=== PATIENT | female | born 1965 | race Caucasian/White ===

== ENCOUNTER 2019-12-03 21:23 | Emergency (ER) | payer BC ==
[~2019-12-03] VITALS: Ht 167.6 cm; Wt 102.1 kg
--- NOTE | 2019-12-04 00:02 | NUR ---
Patient to ER bed 4 to gown for evaluation. Side rails up.
--- NOTE | 2019-12-04 00:05 | NUR ---
Patient complains of cough and body aches for 1 week. Pt denies N/V. Per pt she had an episode of diarrhea today and states she felt chills earlier today. No other injuries/complaints per patient or noted.
--- NOTE | 2019-12-04 00:09 | NUR ---
JONI Downs at bedside examining patient.
[2019-12-04] MEDS ORDERED: AZITHROMYCIN 250 MG TABLET PO ONE (00:30)
--- NOTE | 2019-12-04 00:45 | NUR ---
Patient given written and verbal discharge instructions and verbalizes understanding. ER MD discussed with patient the results and treatment provided. Patient in stable condition. ID arm band removed. Rx of Zithromax and Promethazine with codiene given. Patient educated on pain management and to follow up with PMD. Pain Scale 0/10 Opportunity for questions provided and answered. Medication side effect fact sheet provided.
[2019-12-04 00:48] VITALS: BP_SYST 131
[2019-12-04] MEDS ORDERED: AZITHROMYCIN 250 MG TABLET ONE (00:58)
== END 2019-12-04 00:48 | disposition home or self-care (01) ==
LOC: SED 21:23
DX: R05 Cough (principal); R09.81 Nasal congestion; M79.18 Myalgia, other site; E11.9 Type 2 diabetes mellitus without complications; I10 Essential (primary) hypertension
CPT/HCPCS: 71046; 86710; 99284; Q0144; 36415

== ENCOUNTER 2023-04-26 19:42 | Emergency (ER) | payer BC ==
[~2023-04-26] VITALS: Ht 167.6 cm; Wt 72.1 kg
[~2023-04-26 19:42] MED LIST: CLIN-142 PO; GLU500 PO; LISI1TAB53 PO; PIOG15TA8 PO
[2023-04-26 20:14] VITALS: BP_SYST 167; PULSE 108; RESP 16; TEMP 96.9; O2SAT 95
[2023-04-26 21:39] LABS: BASOPHILS # (AUTO) 0.1 K/uL (0.0-0.2); EOSINOPHILS # (AUTO) 0.1 K/uL (0.0-0.4); EOSINOPHILS % (AUTO) 1.4 % (0.0-4.0); HEMATOCRIT 37.7 % (36-48); HEMOGLOBIN 12.2 g/dL (12.0-16.0); LYMPHOCYTES % (AUTO) 18.8 % (20.5-51.5); MEAN CORPUSCULAR HEMOGLOBIN 28 pg (27-31); MEAN CORPUSCULAR HGB CONC 32 % (32-36); MEAN CORPUSCULAR VOLUME 87 fL (79.0-98.0); MONOCYTES # (AUTO) 0.7 K/uL (0.0-1.0); MONOCYTES % (AUTO) 6.6 % (1.7-9.3); NEUTROPHILS # (AUTO) 7.7 K/uL (1.8-7.7); NEUTROPHILS % (AUTO) 72.2 % (40.0-70.0); PLATELET COUNT (AUTO) 523 K/uL (130-430); RED BLOOD CELL COUNT(AUTO) 4.36 MIL/uL (4.2-6.2); RED CELL DISTRIBUTION WIDTH 13.9 % (9.0-15.0); WHITE BLOOD COUNT (AUTO) 10.7 K/uL (4.8-10.8)
[2023-04-26 21:57] LABS: BILIRUBIN,URINE NEGATIVE (NEGATIVE); BLOOD, URINE 3+ (NEGATIVE); COLOR,URINE YELLOW (YELLOW); GLUCOSE,URINE 3+ (NEGATIVE); KETONES,URINE NEGATIVE (NEGATIVE); LEUKOCYTE ESTERASE ,URINE 1+ (NEGATIVE); NITRITE, URINE NEGATIVE (NEGATIVE); PROTEIN URINE NEGATIVE (NEGATIVE)
[2023-04-26 21:59] LABS: CLARITY/URINE HAZY (CLEAR)
[2023-04-26 22:03] LABS: ALBUMIN 3.1 g/dL (3.4-4.8); CALCIUM 9.8 mg/dL (8.4-11.0); CREATININE 1.53 mg/dL (0.55-1.30); TOTAL BILIRUBIN 0.4 mg/dL (0.0-1.0)
[2023-04-26 22:05] LABS: BACTERIA,URINE FEW /HPF (None Seen); MUCUS,URINE None Seen /LPF (None Seen)
[2023-04-26] MEDS ORDERED: INSULIN REGULAR, HUMAN 10 UNITS/0.1 ML, 3 ML VIAL IVP ONE (23:30)
[2023-04-26] MEDS ORDERED: NACL 0.9% 1,000 ML IV ONE (23:30)
--- NOTE | 2023-04-27 00:16 | NUR ---
PATIENT CAME FOR VAGINAL BLEEDING AND BS CAME UP TO 500 DOCTOR ORDER IV NS 0.9 ONE LITER AND INSULINE IV BEFORE GIVE INSULINE BS WAS 408 AT THE ACCUCHECK PATIENT STABLE AND ASYMPTOMATIC
[2023-04-27] MEDS ORDERED: METF-863 PO (02:03)
[2023-04-27] MEDS ORDERED: AMLO5TAB4 PO (02:03)
[2023-04-27] MEDS ORDERED: LISI20TA30 PO (02:03)
--- NOTE | 2023-04-27 02:03 | NUR ---
ACUTE CHECK NOW 211
--- NOTE | 2023-04-27 02:10 | NUR ---
Patient given written and verbal discharge instructions and verbalizes understanding. ER MD discussed with patient the results and treatment provided. Patient in stable condition. ID arm band removed. IV catheter removed intact and dressing applied, no active bleeding. Rx of KWAW given. Patient educated on pain management and to follow up with PMD. Pain Scale . Opportunity for questions provided and answered. Medication side effect fact sheet provided.
[2023-04-27 02:11] VITALS: BP_SYST 159; PULSE 83; RESP 18; TEMP 97.7; O2SAT 99
== END 2023-04-27 02:11 | disposition home or self-care (01) ==
LOC: SED 19:42
DX: N93.9 Abnormal uterine and vaginal bleeding, unspecified (principal); D25.9 Leiomyoma of uterus, unspecified; C78.00 Secondary malignant neoplasm of unspecified lung; R53.1 Weakness; R63.4 Abnormal weight loss; E11.9 Type 2 diabetes mellitus without complications; I10 Essential (primary) hypertension; F17.200 Nicotine dependence, unspecified, uncomplicated; Z79.899 Other long term (current) drug therapy
CPT/HCPCS: 99285; 71250; 96374; 76830; 76857; 71045; 80053; 81000; 82962; 85025; 87086; 36415; 76376; 74176; 96361; J7030; J1815

== ENCOUNTER 2023-05-01 15:19 | Inpatient (IN) | payer BC ==
[~2023-05-01] VITALS: Ht 170.2 cm; Wt 83.0 kg
[~2023-05-01 15:19] MED LIST changes: +AMLO5TAB4 PO; +LISI20TA30 PO; +METF-863 PO
[2023-05-01 15:20] VITALS: BP_SYST 150; PULSE 84; RESP 0; TEMP 97.2; O2SAT 97
[2023-05-01 15:57] LABS: BASOPHILS # (AUTO) 0.1 K/uL (0.0-0.2); EOSINOPHILS # (AUTO) 0.2 K/uL (0.0-0.4); EOSINOPHILS % (AUTO) 1.8 % (0.0-4.0); HEMATOCRIT 36.5 % (36-48); HEMOGLOBIN 11.8 g/dL (12.0-16.0); LYMPHOCYTES # (AUTO) 1.5 K/uL (1.0-5.5); LYMPHOCYTES % (AUTO) 13.5 % (20.5-51.5); MEAN CORPUSCULAR HEMOGLOBIN 28 pg (27-31); MEAN CORPUSCULAR HGB CONC 32 % (32-36); MEAN CORPUSCULAR VOLUME 86 fL (79.0-98.0); MONOCYTES # (AUTO) 0.8 K/uL (0.0-1.0); NEUTROPHILS # (AUTO) 8.4 K/uL (1.8-7.7); NEUTROPHILS % (AUTO) 76.7 % (40.0-70.0); PLATELET COUNT (AUTO) 481 K/uL (130-430); RED BLOOD CELL COUNT(AUTO) 4.27 MIL/uL (4.2-6.2); RED CELL DISTRIBUTION WIDTH 14.1 % (9.0-15.0)
[2023-05-01 16:04] LABS: PROTHROMBIN TIME 10.4 SECS (9.5-12.5)
[2023-05-01 16:17] LABS: ACETONE, SERUM NEGATIVE (NEGATIVE)
[2023-05-01 16:19] LABS: BILIRUBIN,URINE NEGATIVE (NEGATIVE); BLOOD, URINE 3+ (NEGATIVE); CLARITY/URINE CLEAR (CLEAR); COLOR,URINE YELLOW (YELLOW); GLUCOSE,URINE 3+ (NEGATIVE); KETONES,URINE NEGATIVE (NEGATIVE); LEUKOCYTE ESTERASE ,URINE 1+ (NEGATIVE); NITRITE, URINE NEGATIVE (NEGATIVE); PROTEIN URINE NEGATIVE (NEGATIVE); UROBILINOGEN,URINE 0.2 (0.2-1.0)
[2023-05-01 16:25] LABS: BACTERIA,URINE FEW /HPF (None Seen); MUCUS,URINE None Seen /LPF (None Seen)
[2023-05-01 16:28] LABS: BARBITURATE, URINE NEGATIVE (NEG <=200); BENZODIAZEPINE, URINE NEGATIVE (NEG <=150); CANNABINOID, URINE NEGATIVE (NEG <=50); COCAINE, URINE NEGATIVE (NEG <=150); METHAMPHETAMINES SCREEN,URINE POSITIVE (NEG <=500); OPIATE, URINE NEGATIVE (NEG <=100); PHENCYCLIDINE SCREEN,URINE NEGATIVE (NEG <=25); URINE AMPHETAMINE POSITIVE (NEG <=500); URINE METHADONE NEGATIVE (NEG <=200); URINE OXYCODONE SCREEN NEGATIVE (NEG <=100); URINE PROPOXYPHENE SCREEN NEGATIVE (NEG <=300)
[2023-05-01 16:29] LABS: UR TRICYCLIC ANTIDEPRESSANTS NEGATIVE (NEG <=300)
[2023-05-01 16:38] LABS: ACETAMINOPHEN < 1 ug/mL (1-30); ALANINE AMINOTRANSFERASE 7 U/L (12-78); ALBUMIN 2.8 g/dL (3.4-4.8); ALCOHOL, BLOOD < 3 mg/dL (<10); ANION GAP 8 (5-15); ASPARTATE AMINOTRANSFERASE 27 U/L (10-37); CALCIUM 9.3 mg/dL (8.4-11.0); CARBON DIOXIDE 26 mmol/L (23-29); CHLORIDE 95 mmol/L (98-107); CREATINE KINASE, TOTAL 93 U/L (26-192); GFR AFRICAN AMERICAN 73 mL/min (>90); POTASSIUM 4.4 mmol/L (3.5-5.1); SALICYLATE 1 mg/dL (3-30); SODIUM SERUM 129 mmol/L (136-145); TOTAL BILIRUBIN 0.3 mg/dL (0.0-1.0); TOTAL PROTEIN, SERUM 7.3 g/dL (6.4-8.3); UREA NITROGEN, BLOOD 12 mg/dL (8-21)
[2023-05-01 16:39] LABS: GLUCOSE 433 mg/dL (74-106)
[2023-05-01] MEDS ORDERED: NACL 0.9% 1,000 ML IV ONE ×2 (17:00→22:30)
[2023-05-01] MEDS ORDERED: INSULIN REGULAR, HUMAN 10 UNITS/0.1 ML, 3 ML VIAL IVP ONE (17:00)
[2023-05-01] MEDS ORDERED: cefTRIAXone 1 GM in D5W 50 ML IV ONE (22:15)
[2023-05-01] MEDS ORDERED: METF-379 PO (22:19)
[2023-05-01] MEDS ORDERED: LISI20TA30 PO (22:19)
[2023-05-01] MEDS ORDERED: AMLO5TAB4 PO (22:20)
[2023-05-01] MEDS ORDERED: cefTRIAXone 1 GM VIAL ONE (22:23)
[2023-05-01 23:45] VITALS: BP_SYST 155; PULSE 102; RESP 19; TEMP 97.3
[2023-05-02 08:25] VITALS: BP_SYST 149; PULSE 112; RESP 16; TEMP 97.6; O2SAT 91
[2023-05-02 08:31] VITALS: O2SAT 91
[2023-05-02 11:10] VITALS: BP_SYST 107; BP_SYST 156; PULSE 111; PULSE 77; RESP 17; TEMP 97.8; O2SAT 98
[2023-05-02] MEDS: NACL 0.9% 1,000 ML IV SCH ×2 (12:27→21:18)
[2023-05-02 16:38] VITALS: BP_SYST 141; PULSE 105; RESP 17; TEMP 98.1; O2SAT 95
[2023-05-02] MEDS ORDERED: DEXTROSE 50%-WATER 50 ML DISP.SYRIN IVP PRN (18:00)
[2023-05-02] MEDS ORDERED: D5W 1,000 ML IV PRN (18:00)
[2023-05-02] MEDS ORDERED: GLUCOSE (DEXTROSE) ORAL GEL -Adults PO PRN (18:00)
[2023-05-02 18:25] LABS: BASOPHILS # (AUTO) 0.1 K/uL (0.0-0.2); BASOPHILS % (AUTO) 0.8 % (0.0-2.0); EOSINOPHILS # (AUTO) 0.1 K/uL (0.0-0.4); EOSINOPHILS % (AUTO) 0.6 % (0.0-4.0); HEMATOCRIT 37.1 % (36-48); HEMOGLOBIN 11.8 g/dL (12.0-16.0); LYMPHOCYTES # (AUTO) 1.6 K/uL (1.0-5.5); MEAN CORPUSCULAR HEMOGLOBIN 27 pg (27-31); MEAN CORPUSCULAR HGB CONC 32 % (32-36); MEAN CORPUSCULAR VOLUME 85 fL (79.0-98.0); MONOCYTES % (AUTO) 7.8 % (1.7-9.3); NEUTROPHILS # (AUTO) 9.5 K/uL (1.8-7.7); NEUTROPHILS % (AUTO) 77.8 % (40.0-70.0); PLATELET COUNT (AUTO) 444 K/uL (130-430); RED BLOOD CELL COUNT(AUTO) 4.35 MIL/uL (4.2-6.2); RED CELL DISTRIBUTION WIDTH 14.2 % (9.0-15.0); WHITE BLOOD COUNT (AUTO) 12.2 K/uL (4.8-10.8)
[2023-05-02 18:38] LABS: ALBUMIN 2.6 g/dL (3.4-4.8); CALCIUM 9.4 mg/dL (8.4-11.0); CREATININE 0.92 mg/dL (0.55-1.30); POTASSIUM 4.3 mmol/L (3.5-5.1); TOTAL BILIRUBIN 0.4 mg/dL (0.0-1.0); TOTAL PROTEIN, SERUM 6.9 g/dL (6.4-8.3)
[2023-05-02 20:00] VITALS: BP_SYST 152; PULSE 103; RESP 18; TEMP 97.7; O2SAT 94
[2023-05-02] MEDS: INSULIN LISPRO SLIDING SCALE 100 UNITS/ML, 3 ML VIAL (humaLOG) SUBCUT PRN (21:15)
[2023-05-02] MEDS ORDERED: cefTRIAXone 1 GM IVPB PREMIX 50 ML IV ONE (22:14)
[2023-05-02] MEDS ORDERED: cefTRIAXone 1 GM IVPB PREMIX 50 ML IV SCH (22:15)
[2023-05-03 00:22] VITALS: BP_SYST 156; PULSE 106; RESP 18; TEMP 97.5; O2SAT 87
[2023-05-03] MEDS: INSULIN LISPRO SLIDING SCALE 100 UNITS/ML, 3 ML VIAL (humaLOG) SUBCUT PRN ×4 (06:10→21:26)
[2023-05-03] MEDS ORDERED: DIATR MEGLU/DIATRIZ SOD 30 ML SOLUTION PO ONE (07:20)
[2023-05-03 08:05] VITALS: BP_SYST 151; PULSE 110; RESP 18; TEMP 97.4; O2SAT 94
[2023-05-03] MEDS: NACL 0.9% 1,000 ML IV SCH ×3 (08:30→21:25)
[2023-05-03] MEDS: INSULIN NPH/REGULAR 70-30, 100 UNITS/ML, 3 ML VIAL SUBCUT SCH ×2 (09:00→18:24)
[2023-05-03 09:32] VITALS: O2SAT 95
[2023-05-03] MEDS ORDERED: ASPIRIN 81 MG TAB.CHEW PO ONE (09:45)
[2023-05-03] MEDS ORDERED: LISINOPRIL 10 MG TABLET (PRINIVIL) PO ONE (10:45)
[2023-05-03 12:23] VITALS: BP_SYST 159; PULSE 101; RESP 16; TEMP 97.8; O2SAT 97
[2023-05-03 17:24] VITALS: BP_SYST 163; PULSE 100; RESP 20; TEMP 97.3; O2SAT 100
[2023-05-03 20:00] VITALS: BP_SYST 139; PULSE 99; RESP 16; TEMP 97.1; O2SAT 98
[2023-05-03] MEDS: cefTRIAXone 1 GM IVPB PREMIX 50 ML IV SCH (21:20)
[2023-05-04] VITALS (7 sets, daily range): BP systolic 130–157; PULSE 75–106; RESP 16–18; TEMP 96.9–98.6; O2SAT 94–98
[2023-05-04 04:26] LABS: BASOPHILS # (AUTO) 0.1 K/uL (0.0-0.2); BASOPHILS % (AUTO) 1.1 % (0.0-2.0); EOSINOPHILS # (AUTO) 0.2 K/uL (0.0-0.4); EOSINOPHILS % (AUTO) 1.6 % (0.0-4.0); HEMATOCRIT 36.9 % (36-48); HEMOGLOBIN 11.8 g/dL (12.0-16.0); LYMPHOCYTES # (AUTO) 1.8 K/uL (1.0-5.5); LYMPHOCYTES % (AUTO) 15.7 % (20.5-51.5); MEAN CORPUSCULAR HEMOGLOBIN 27 pg (27-31); MEAN CORPUSCULAR HGB CONC 32 % (32-36); MEAN CORPUSCULAR VOLUME 85 fL (79.0-98.0); MONOCYTES % (AUTO) 8.3 % (1.7-9.3); NEUTROPHILS # (AUTO) 8.4 K/uL (1.8-7.7); NEUTROPHILS % (AUTO) 73.3 % (40.0-70.0); PLATELET COUNT (AUTO) 462 K/uL (130-430); RED BLOOD CELL COUNT(AUTO) 4.36 MIL/uL (4.2-6.2); RED CELL DISTRIBUTION WIDTH 14.3 % (9.0-15.0); WHITE BLOOD COUNT (AUTO) 11.5 K/uL (4.8-10.8)
[2023-05-04 05:03] LABS: CALCIUM 9.8 mg/dL (8.4-11.0); CREATININE 0.72 mg/dL (0.55-1.30); POTASSIUM 4.1 mmol/L (3.5-5.1)
[2023-05-04] MEDS: INSULIN LISPRO SLIDING SCALE 100 UNITS/ML, 3 ML VIAL (humaLOG) SUBCUT PRN ×3 (06:39→16:43)
[2023-05-04] MEDS: INSULIN NPH/REGULAR 70-30, 100 UNITS/ML, 3 ML VIAL SUBCUT SCH ×2 (06:41→16:41)
[2023-05-04] MEDS: ASPIRIN 81 MG TAB.CHEW PO SCH (08:20)
[2023-05-04] MEDS: LISINOPRIL 10 MG TABLET (PRINIVIL) PO SCH (08:21)
[2023-05-04] MEDS ORDERED: LIP40 PO (09:14)
[2023-05-04] MEDS ORDERED: ASPI-1393 PO (09:14)
[2023-05-04] MEDS ORDERED: SITA100T11 PO (09:19)
[2023-05-04] MEDS: NACL 0.9% 1,000 ML IV SCH (20:39)
[2023-05-04] MEDS: cefTRIAXone 1 GM IVPB PREMIX 50 ML IV SCH (21:18)
[2023-05-05] VITALS (8 sets, daily range): BP systolic 135–152; PULSE 94–106; RESP 15–20; TEMP 96.3–98.7; O2SAT 91–97
[2023-05-05] MEDS: NACL 0.9% 1,000 ML IV SCH ×2 (06:06→10:29)
[2023-05-05] MEDS: INSULIN NPH/REGULAR 70-30, 100 UNITS/ML, 3 ML VIAL SUBCUT SCH ×2 (06:14→16:24)
[2023-05-05] MEDS: INSULIN LISPRO SLIDING SCALE 100 UNITS/ML, 3 ML VIAL (humaLOG) SUBCUT PRN ×4 (06:18→21:37)
[2023-05-05 06:22] LABS: BASOPHILS # (AUTO) 0.1 K/uL (0.0-0.2); BASOPHILS % (AUTO) 1.2 % (0.0-2.0); EOSINOPHILS # (AUTO) 0.3 K/uL (0.0-0.4); EOSINOPHILS % (AUTO) 3.2 % (0.0-4.0); HEMATOCRIT 34.4 % (36-48); HEMOGLOBIN 11.3 g/dL (12.0-16.0); LYMPHOCYTES # (AUTO) 1.7 K/uL (1.0-5.5); LYMPHOCYTES % (AUTO) 18.6 % (20.5-51.5); MEAN CORPUSCULAR HEMOGLOBIN 28 pg (27-31); MEAN CORPUSCULAR HGB CONC 33 % (32-36); MEAN CORPUSCULAR VOLUME 84 fL (79.0-98.0); MONOCYTES # (AUTO) 0.8 K/uL (0.0-1.0); MONOCYTES % (AUTO) 8.4 % (1.7-9.3); NEUTROPHILS # (AUTO) 6.4 K/uL (1.8-7.7); NEUTROPHILS % (AUTO) 68.6 % (40.0-70.0); PLATELET COUNT (AUTO) 489 K/uL (130-430); RED BLOOD CELL COUNT(AUTO) 4.08 MIL/uL (4.2-6.2); WHITE BLOOD COUNT (AUTO) 9.3 K/uL (4.8-10.8)
[2023-05-05 06:46] LABS: CALCIUM 9.6 mg/dL (8.4-11.0); CREATININE 0.81 mg/dL (0.55-1.30); POTASSIUM 4.2 mmol/L (3.5-5.1)
[2023-05-05] MEDS: LISINOPRIL 10 MG TABLET (PRINIVIL) PO SCH (09:08)
[2023-05-05] MEDS: ASPIRIN 81 MG TAB.CHEW PO SCH (09:08)
[2023-05-05] MEDS: cefTRIAXone 1 GM IVPB PREMIX 50 ML IV SCH (20:46)
[2023-05-05] MEDS ORDERED: LORazepam 1 MG TABLET PO PRN (22:00)
[2023-05-06 01:28] VITALS: BP_SYST 156; PULSE 91; RESP 17; TEMP 96.4; O2SAT 100
[2023-05-06] MEDS: NACL 0.9% 1,000 ML IV SCH ×2 (02:47→06:30)
[2023-05-06 05:18] LABS: BASOPHILS # (AUTO) 0.1 K/uL (0.0-0.2); BASOPHILS % (AUTO) 1.1 % (0.0-2.0); EOSINOPHILS # (AUTO) 0.4 K/uL (0.0-0.4); EOSINOPHILS % (AUTO) 4.1 % (0.0-4.0); HEMOGLOBIN 11.6 g/dL (12.0-16.0); LYMPHOCYTES # (AUTO) 1.8 K/uL (1.0-5.5); LYMPHOCYTES % (AUTO) 18.6 % (20.5-51.5); MEAN CORPUSCULAR HEMOGLOBIN 27 pg (27-31); MEAN CORPUSCULAR HGB CONC 32 % (32-36); MEAN CORPUSCULAR VOLUME 85 fL (79.0-98.0); MONOCYTES # (AUTO) 0.7 K/uL (0.0-1.0); MONOCYTES % (AUTO) 7.2 % (1.7-9.3); NEUTROPHILS # (AUTO) 6.5 K/uL (1.8-7.7); PLATELET COUNT (AUTO) 520 K/uL (130-430); RED BLOOD CELL COUNT(AUTO) 4.26 MIL/uL (4.2-6.2); RED CELL DISTRIBUTION WIDTH 14.1 % (9.0-15.0); WHITE BLOOD COUNT (AUTO) 9.4 K/uL (4.8-10.8)
[2023-05-06 05:26] LABS: CALCIUM 9.7 mg/dL (8.4-11.0); CREATININE 0.73 mg/dL (0.55-1.30); POTASSIUM 3.9 mmol/L (3.5-5.1)
[2023-05-06] MEDS: INSULIN NPH/REGULAR 70-30, 100 UNITS/ML, 3 ML VIAL SUBCUT SCH ×2 (06:21→17:09)
[2023-05-06 08:00] VITALS: BP_SYST 157; PULSE 100; RESP 17; TEMP 98.7; O2SAT 92
[2023-05-06] MEDS: ASPIRIN 81 MG TAB.CHEW PO SCH (10:31)
[2023-05-06] MEDS: LISINOPRIL 10 MG TABLET (PRINIVIL) PO SCH (10:32)
[2023-05-06 12:00] VITALS: BP_SYST 163; PULSE 96; RESP 18; TEMP 98.2; O2SAT 99
[2023-05-06 16:00] VITALS: BP_SYST 166; PULSE 96; RESP 18; TEMP 98
[2023-05-06] MEDS: INSULIN LISPRO SLIDING SCALE 100 UNITS/ML, 3 ML VIAL (humaLOG) SUBCUT PRN (17:04)
[2023-05-06 20:00] VITALS: BP_SYST 155; PULSE 93; RESP 17; TEMP 98.6; O2SAT 98
[2023-05-07 00:38] VITALS: BP_SYST 144; PULSE 96; RESP 18; TEMP 96.3; O2SAT 98
[2023-05-07 03:47] VITALS: O2SAT 96
[2023-05-07 04:50] LABS: BASOPHILS # (AUTO) 0.1 K/uL (0.0-0.2); BASOPHILS % (AUTO) 1.3 % (0.0-2.0); EOSINOPHILS # (AUTO) 0.4 K/uL (0.0-0.4); EOSINOPHILS % (AUTO) 3.5 % (0.0-4.0); HEMATOCRIT 36.5 % (36-48); HEMOGLOBIN 11.8 g/dL (12.0-16.0); LYMPHOCYTES % (AUTO) 18.9 % (20.5-51.5); MEAN CORPUSCULAR HEMOGLOBIN 27 pg (27-31); MEAN CORPUSCULAR HGB CONC 32 % (32-36); MEAN CORPUSCULAR VOLUME 84 fL (79.0-98.0); MONOCYTES # (AUTO) 0.8 K/uL (0.0-1.0); MONOCYTES % (AUTO) 7.6 % (1.7-9.3); NEUTROPHILS # (AUTO) 7.1 K/uL (1.8-7.7); NEUTROPHILS % (AUTO) 68.7 % (40.0-70.0); PLATELET COUNT (AUTO) 558 K/uL (130-430); RED BLOOD CELL COUNT(AUTO) 4.32 MIL/uL (4.2-6.2); RED CELL DISTRIBUTION WIDTH 14.1 % (9.0-15.0); WHITE BLOOD COUNT (AUTO) 10.3 K/uL (4.8-10.8)
[2023-05-07 04:51] LABS: CALCIUM 10.1 mg/dL (8.4-11.0); CREATININE 0.77 mg/dL (0.55-1.30); POTASSIUM 4.2 mmol/L (3.5-5.1)
[2023-05-07] MEDS: INSULIN NPH/REGULAR 70-30, 100 UNITS/ML, 3 ML VIAL SUBCUT SCH (06:52)
[2023-05-07 12:19] VITALS: BP_SYST 134; PULSE 103; RESP 14; TEMP 97; O2SAT 97
[2023-05-07] MEDS: ASPIRIN 81 MG TAB.CHEW PO SCH (12:59)
[2023-05-07] MEDS: LISINOPRIL 10 MG TABLET (PRINIVIL) PO SCH (12:59)
[2023-05-07] MEDS ORDERED: HYDROcodone/ACETAMIN 10-325 MG TAB PO ONE (15:00)
[2023-05-07] MEDS ORDERED: NALOXONE HCL 0.4 MG/ML AMP (NARCAN) IVP PRN (15:00)
[2023-05-07] MEDS ORDERED: MORPHINE 2 MG/ML INJ. SYRINGE IVP PRN (15:00)
[2023-05-07 16:04] VITALS: BP_SYST 134; PULSE 100; RESP 18; TEMP 97; O2SAT 98
== END 2023-05-07 17:30 | DRG 720 ==
LOC: SED 15:19 → STU 22:11 → SMU 05-04 15:42
PROVIDERS: ADMIT Family Medicine; ATTEND Family Medicine
PROC: 4A00X4Z Measurement of Central Nervous Electrical Activity, External Approach (ICD-10-PCS; principal; 2023-05-01)
DX: A41.9 Sepsis, unspecified organism (principal); I63.9 Cerebral infarction, unspecified; E44.0 Moderate protein-calorie malnutrition; C78.00 Secondary malignant neoplasm of unspecified lung; C79.51 Secondary malignant neoplasm of bone; G93.89 Other specified disorders of brain; C54.1 Malignant neoplasm of endometrium; E87.1 Hypo-osmolality and hyponatremia; I10 Essential (primary) hypertension; E11.65 Type 2 diabetes mellitus with hyperglycemia; F15.10 Other stimulant abuse, uncomplicated; N13.6 Pyonephrosis; Z86.73 Personal history of transient ischemic attack (TIA), and cerebral infarction without residual deficits; Z68.28 Body mass index [BMI] 28.0-28.9, adult; Z91.148 Patient's other noncompliance with medication regimen for other reason
CPT/HCPCS: 36415; 70450-TC; 70551; 71045; 71260-TC; 76376; 80048; 80053; 80061; 80307; 81000; 82009; 82140; 82306; 82550; 82962; 83037; 83605; 83735; 84484; 85025; 85610-TC; 85730-TC; 86304; 87040; 87086; 93005; 95816; 96365; 96375; 97116-GP; 97163-GP; 97530-GP; 99285; G0378; G0480; G0481; G0482; J0696; J1815; J7030; Q9964; Q9967